=== PATIENT | female | born 1945 | race Caucasian/White ===

== ENCOUNTER 2017-07-28 17:36 | Emergency (ER) | payer OTHER, BC, MEDICARE ==
[~2017-07-28] VITALS: Ht 157.5 cm; Wt 59.0 kg
[~2017-07-28 17:36] MED LIST: CEPH-507 PO; LEVO500T2 PO
[2017-07-28 18:03] VITALS: BP 108/98
[2017-07-28] MEDS ORDERED: L.E.T. SYRINGE 5 ML MM STA (18:18)
--- NOTE | 2017-07-28 18:25 | ED Fall/Injury ---
General Chief Complaint: Trauma-Non Activation Stated Complaint: FALL,CHIN LAC Nursing Triage Note: patient reports at 1620 she was walking in parking lot at her employment, and tripped on her feet and fell hitting the landing on her chin. patient denies LOC, N/V, or vision problems, patient reports lac on chin that wont stop bleeding. Source: patient Exam Limitations: no limitations History of Present Illness Date Seen by Provider: Jul 28, 2017 Time Seen by Provider: 18:07 Initial Comments Here with report of fall or walking in the parking lot. States that she fell and scraped her left hand and hit her chin on the ground. Denies loss of consciousness. She does have a laceration under the chin Occurred: just prior to arrival (30 min ago) Severity: mild Injuries/Pain Location: face, upper extremity Context: tripped Loss of Consciousness: no loss of consciousness Modifying Factors: Improves With Rest Associated Symptoms (Fall): No Headache, No Nausea/Vomiting, No Neck Pain Allergies and Home Medications Allergies Coded Allergies: No Known Drug Allergies (Unverified , 02/10/16) Patient Home Medication List Home Medication List Reviewed: Yes Constitutional: see HPI, No malaise, No weakness Ears, Nose, Mouth, Throat: denies mouth pain, denies loose teeth Respiratory: No cough, No short of breath Cardiovascular: no symptoms reported Musculoskeletal: No back pain, No neck pain Skin: see HPI, lesions Psychiatric/Neurological: Denies Headache, Denies Weakness Past Zlqdcly-Esedrp-Rolrod Hx Patient Social History Alcohol Use: Denies Use Recreational Drug Use: No Recent Foreign Travel: No Contact w/Someone Who Travel: No Recent Infectious Disease Expo: No Recent Hopitalizations: No Seasonal Allergies Seasonal Allergies: No Surgeries History of Surgeries: Yes (COCHLEAR IMPLANTS) Surgeries: Hysterectomy Respiratory History of Respiratory Disorde: No Cardiovascular History of Cardiac Disorders: No Neurological History of Neurological Disord: No Reproductive System Hx Reproductive Disorders: No Sexually Transmitted Disease: No HIV/AIDS: No Gastrointestinal History of Gastrointestinal Di: No Musculoskeletal History of Musculoskeletal Dis: No Endocrine History of Endocrine Disorders: No Cancer History of Cancer: No Psychosocial Behavioral Health Disorders: Depression Reviewed Nursing Assessment Reviewed/Agree w Nursing PMH: Yes Family Medical History Significant Family History: No Pertinent Family Hx Physical Exam Vital Signs Vital Signs - First Documented 07/28/17 18:03 Temp 98.2 Pulse 104 Resp 18 B/P (MAP) 108/98 (101) Pulse Ox 99 Capillary Refill : Less Than 3 Seconds General Appearance: WD/WN, no apparent distress HEENT: other (No obvious tooth misalignment. Jaw structures align normally) Neck: non-tender, full range of motion, supple, normal inspection Cardiovascular: regular rate, rhythm, no murmur Respiratory: lungs clear, normal breath sounds Back: normal inspection, no vertebral tenderness Extremities: normal range of motion, non-tender Neurologic/Psychiatric: alert, normal mood/affect, oriented x 3 Skin: warm/dry, other (2 cm laceration under the chin centrally. Few superficial abrasions to the dorsum of the left hand on the fingers.) [place] Coma Score Best Eye Response: (4) Open Spontaneously Best Verbal Response: (5) Oriented Best Motor Response: (6) Obeys Commands Laceration Repair : Wound Location: Face Other Wound Location Under chin Wound Length (cm): 2 Wound's Depth, Shape: superficial, linear Wound Explored: contaminated Irrigated w/ Saline (ccs): 50 Betadine Prep?: No (Hibiclens) Anesthesia: Lidocaine w/ Epi (LET topical) Volume Anesthetic (ccs): 10 Wound Debrided: minimal Suture Size: 5-0 Other Closure Supply: Wound Adhesive Progress Tolerated procedure well without complications Progress/Results/Core Measures Results/Orders My Orders Orders - AMY MURRAY MD Let Solution (Let Solution) (07/28/17 18:18) Vital Signs/I&O Vital Sign - Last 12Hours 07/28/17 18:03 Temp 98.2 Pulse 104 Resp 18 B/P (MAP) 108/98 (101) Pulse Ox 99 Blood Pressure Mean: 101 Progress Note : Progress Note Seen and evaluated. Tetanus up-to-date. LET applied to the wound. Wound closed with skin glue. Discharged home with return precautions. Patient verbalize understanding instructions and agreement with plan. Departure Impression Impression: Primary Impression: Laceration of face Qualified Codes: S01.81XA - Laceration without foreign body of other part of head, initial encounter Additional Impression: Abrasion hand Disposition: HOME, SELF-CARE Condition: Improved Departure-Patient Inst. Decision time for Depature: 18:29 Referrals: KENYETTA HARRY DO (PCP/Family) Primary Care Physician Patient Instructions: Laceration Repair With Glue (DC) Add. Discharge Instructions: All discharge instructions reviewed with patient and/or family. Voiced understanding. Do not put ointment, lotion or cream over the skin glue as this will cause it to prematurely, off. The glue should follow-up in the next 4-7 days. You may use a dry Band-Aid over the wound as needed. The skin wounds on her hand may be cleaned and covered with antibiotic ointment and Band-Aid once or twice daily for the next several days and then as needed. Return for worse pain, swelling, increasing redness or foul-smelling drainage or other concerns as needed. You may take Tylenol as needed for pain control per package directions. AMY MURRAY MD Jul 28, 2017 18:25
== END 2017-07-28 19:20 | disposition home or self-care (01) ==
LOC: EDUNIT# 17:36 → ER 17:38
DX: S01.81XA Laceration without foreign body of other part of head, initial encounter (principal); S60.512A Abrasion of left hand, initial encounter; F32.9 Major depressive disorder, single episode, unspecified; R40.2142 Coma scale, eyes open, spontaneous, at arrival to emergency department; R40.2252 Coma scale, best verbal response, oriented, at arrival to emergency department; R40.2362 Coma scale, best motor response, obeys commands, at arrival to emergency department; Z90.710 Acquired absence of both cervix and uterus; Z96.21 Cochlear implant status; W01.0XXA Fall on same level from slipping, tripping and stumbling without subsequent striking against object, initial encounter; Y92.481 Parking lot as the place of occurrence of the external cause